=== PATIENT | male | born 1950 | race Caucasian/White ===

== ENCOUNTER 2024-05-04 10:16 | Inpatient (IN) ==
[~2024-05-04 10:16] MED LIST: Calcium CHLORIDE 10% SYRINGE 1 GM/10 ML ONE; EPINEPHrine SYR 0.1MG/ML 10 ml SYRINGE IV ONE; Sodium Bicarbonate 8.4% SYR 50 ml SYRINGE ONE
[2024-05-04 10:49] LABS: Hematocrit 62.4 % (38-53); Hemoglobin 19.4 g/dL (13.2-16.3); Mean Corpuscular Hemoglobin 32.2 pg (27-33); Mean Corpuscular Hgb Conc 31.2 g/dL (31-36); Mean Corpuscular Volume 103.5 fL (80-97); Mean Platelet Volume 9.9 fL (7.5-11.2); Platelet Count 101 10^3/uL (150-450); Red Blood Count 6.03 10^6/uL (4.06-5.63); Red Cell Distribution Width 18.9 % (12-17); White Blood Count 14.7 10^3/uL (3.6-10.2)
[2024-05-04] MEDS: Norepinephrine 32MCG/ML D5WBAG 8,000 MCG/250 ML BAG IV SCH (11:05)
[2024-05-04] MEDS: fentaNYL 100 mcg/2 ml 50 MCG/ML VIAL IV SLOW PU ONE (11:08)
[2024-05-04] MEDS ORDERED: NS 0.9% 1000 ml BAG 200 ML IV PRN (11:15)
[2024-05-04] MEDS ORDERED: Heparin 1,000 UNIT/ML 10 ml (10,000 UNITS) CATHLAB/DIALYSIS DIALYSIS PRN (11:15)
[2024-05-04] MEDS ORDERED: Albumin Human 25% 25 GM/100 ML BTL IV PRN (11:15)
[2024-05-04] MEDS ORDERED: NS 0.9% 1000 ml BAG 100 ML IV PRN (11:15)
[2024-05-04 11:23] LABS: ABS Basophils 0.1 10^3/uL (0.0-0.1); ABS Eosinophils 0.1 10^3/uL (0.0-0.5); ABS Lymphocytes 5.2 10^3/uL (1.0-4.8); ABS Monocytes 1.3 10^3/uL (0.0-1.1); ABS Neutrophils 8.1 10^3/uL (1.5-7.6); ABS Nucleated RBC 0.14 10^3/ul; Eosinophil % 0.4 %; Lymphocyte % 35.2 %; Nucleated Red Blood Cells % 0.9 %/100WBC (0.0-0.8)
[2024-05-04] MEDS: Calcium CHLORIDE 10% SYRINGE 1 GM/10 ML IV ONE (11:27)
[2024-05-04 11:29] LABS: Blood Urea Nitrogen 52 mg/dL (6-24); CO2 Carbon Dioxide 23 mmol/L (22-32); Calcium 8.1 mg/dL (8.6-10.3); Chloride 86 mmol/L (101-111); Creatinine, Serum 6.63 mg/dL (0.67-1.17); Glucose 245 mg/dL (70-100); Sodium 128 mmol/L (135-145); eGFR CKD-EPI 8.3 (>60)
[2024-05-04 11:30] LABS: ALT 53 U/L (7-52)
[2024-05-04 11:30] LABS: Potassium, Whole Blood 4.7 mmol/L (3.4-4.5)
[2024-05-04 11:31] LABS: Anion Gap 19 mmol/L (2-16)
[2024-05-04 11:32] LABS: Albumin/Globulin Ratio 1.7 (1-3); Alkaline Phosphatase 52 U/L (35-149); Globulin 2.3 g/dL (2-4); Lipase 28 U/L (11.0-82.0); Total Bilirubin 0.9 mg/dL (0.2-1.0); Total Protein 6.3 g/dL (6.4-8.9)
[2024-05-04] MEDS ORDERED: EPINEPHrine SYR 0.1MG/ML 10 ml SYRINGE IV ONE (11:33)
[2024-05-04] MEDS ORDERED: Sodium Bicarbonate 8.4% SYR 50 ml SYRINGE ONE (11:33)
[2024-05-04 11:45] LABS: Urine Benzodiazepine Screen None Detected (None Detect); Urine Cannabinoids Screen None Detected (None Detect); Urine Opiates Screen None Detected (None Detect)
[2024-05-04] MEDS: levETIRAcetam 1000MG IVPREMIX 1,000 MG/100 ML BAG IVPB SCH (11:57)
[2024-05-04 11:58] LABS: Urine Appearance Turbid; Urine Bilirubin Negative (Negative); Urine Blood 1+ (Negative); Urine Color Yellow; Urine Glucose Negative (Negative); Urine Ketones Negative (Negative); Urine Nitrite Negative (Negative); Urine Protein 1+ (>=30 mg/dL) (Negative); Urine Specific Gravity 1.028 (1.002-1.030); Urine Urobilinogen Negative (Negative)
[2024-05-04 12:08] LABS: Urine Bacteria Absent /HPF (Absent); Urine Red Blood Cell 3+(>10/hpf) /HPF (0-Trace); Urine Sperm Present /HPF (Absent); Urine White Blood Cell 1+(6-10/hpf) /HPF (0-Trace)
[2024-05-04] MEDS ORDERED: Lorazepam PYXIS KEY PRN (12:59)
[2024-05-04] MEDS: Morphine 10 MG/ML VIAL (1 ml) IV ONE (13:09)
[2024-05-04] MEDS: LORazepam 2 mg VIAL 1 ml IV PUSH ONE (13:09)
[2024-05-04] MEDS: Sodium Bicarbonate 8.4% SYR 50 ml SYRINGE IV ONE (13:28)
[2024-05-04] MEDS: fentaNYL INFUSION 50 mcg/mL VL 2,500 MCG/50 ML VIAL IV SCH (13:29)
== END 2024-05-04 13:20 | disposition expired | DRG 296 ==
LOC: EDBD → ED 10:16 → EDHOLD 10:40 → ICU 11:44
PROVIDERS: ADMIT Internal Medicine Critical Care Medicine; ATTEND Internal Medicine Critical Care Medicine